=== PATIENT | female | born 1950 | race Caucasian/White ===

== ENCOUNTER 2022-12-25 07:00 | Outpatient (CLI) | payer MEDICARE, OTHER ==
[2022-12-25 19:01] LABS: BILIRUBIN,URINE NEGATIVE (NEGATIVE); GLUCOSE, URINE (UA) NEGATIVE (NEGATIVE); KETONES,URINE (UA) NEGATIVE (NEGATIVE); LEUKOCYTE ESTERASE, URINE TRACE (NEGATIVE); NITRITE,URINE NEGATIVE (NEGATIVE); OCCULT BLOOD,URINE MODERATE (NEGATIVE); PROTEIN,URINE NEGATIVE (NEGATIVE); UROBILINOGEN,URINE 0.2 (NORMAL) E.U./dL (NORMAL)
[2022-12-25 19:39] LABS: BACTERIA,URINE Rare /HPF (None Seen); CLARITY,URINE CLEAR (CLEAR); MUCUS,URINE Few Strands; SQUAMOUS EPITHELIAL CELL,UR RARE Squamous (<= Few)
== END 2022-12-25 23:59 | disposition home or self-care (01) ==
LOC: LAB.S 07:00
PROVIDERS: ATTEND Emergency Medicine
DX: R30.0 Dysuria (principal)
CPT/HCPCS: 81001; 87086

== ENCOUNTER 2023-01-18 19:08 | Outpatient (CLI) | payer MEDICARE | END 2023-01-18 19:09 | disposition left against medical advice (07) | LOC: EMS 19:08 | DX: Z03.89 Encounter for observation for other suspected diseases and conditions ruled out (principal) ==